=== PATIENT | female | born 1965 | race Caucasian/White ===

== ENCOUNTER 2018-03-02 10:53 | Emergency (ER) | payer OTHER ==
[2018-03-02] MEDS ORDERED: Adacel Vial IM ONE ×2 (11:08→11:15)
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
[2018-03-02] MEDS ORDERED: TYLENOL 325 MG PO STA (12:11)
[2018-03-02] MEDS ORDERED: TYLENOL 325 MG ONE (12:16)
[2018-03-02] MEDS ORDERED: NORCO 5/325 MG PO ONE (12:46)
[2018-03-02] MEDS ORDERED: NORCO 5/325 MG ONE (12:55)
[2018-03-02 13:11] VITALS: BP 155/92; PULSE 82; O2SAT 96
--- NOTE | 2018-03-02 20:21 | XRAY ---
Indication: Pain following injury. Comparison: None 2 views of the right forearm demonstrates nondisplaced comminuted distal radial fracture with intra-articular extension and soft tissue swelling. No other bony, articular, or soft tissue abnormalities.
--- NOTE | 2018-03-02 20:23 | XRAY ---
Indication: Pain following injury. Comparison: None 3 views of the right hand demonstrates nondisplaced comminuted distal radial fracture with intra-articular extension and soft tissue swelling. No other bony, articular, or soft tissue abnormalities.
== END 2018-03-02 13:11 | disposition home or self-care (01) ==
LOC: ED 10:53
PROC: 2W3CX1Z Immobilization of Right Lower Arm using Splint (ICD-10-PCS; principal; 2018-03-02)
DX: S52.124A Nondisplaced fracture of head of right radius, initial encounter for closed fracture (principal); W37.8XXA Explosion and rupture of other pressurized tire, pipe or hose, initial encounter; Y92.009 Unspecified place in unspecified non-institutional (private) residence as the place of occurrence of the external cause
CPT/HCPCS: 29126; 73090; 73130; 90471; 90715; 99284; A9270-GY